=== PATIENT | female | born 1970 | race Two or more races ===

== ENCOUNTER → 2021-05-04 | Outpatient (CLI) | payer BC ==
[2021-05-04 12:52] LABS: Beta HCG, Quantitative < 1 mlU/mL (1-3)
[2021-05-04 13:13] LABS: Lactate Dehydrogenase 181 U/L (84-246)
== END | disposition home or self-care (01) ==
LOC: LAB 08:50
PROVIDERS: ATTEND Obstetrics & Gynecology Gynecologic Oncology
DX: N94.89 Other specified conditions associated with female genital organs and menstrual cycle (principal); R10.2 Pelvic and perineal pain; N92.0 Excessive and frequent menstruation with regular cycle
CPT/HCPCS: 36415; 82105; 82378; 83520; 83615; 84702; 86304; 86336

== ENCOUNTER 2022-06-20 11:12 | Emergency (ER) | payer BC, OTHER ==
[~2022-06-20] VITALS: Ht 157.5 cm; Wt 76.0 kg
[~2022-06-20 11:12] MED LIST: FLUO60TA7 PO; LISI40TA11 PO; SITA100T7 PO
[2022-06-20] MEDS ORDERED: cloNIDine HCL 0.1 MG TAB PO ONE (11:30)
[2022-06-20 11:50] VITALS: BP 207/106
[2022-06-20] MEDS ORDERED: IBUP600T28 PO (13:00)
[2022-06-20] MEDS ORDERED: ACETAMINOPHEN 500 MG TAB PO ONE (13:00)
== END 2022-06-20 13:45 | disposition home or self-care (01) ==
LOC: ER 11:12
DX: S83.92XA Sprain of unspecified site of left knee, initial encounter (principal); S70.02XA Contusion of left hip, initial encounter; E11.9 Type 2 diabetes mellitus without complications; I10 Essential (primary) hypertension; Z90.710 Acquired absence of both cervix and uterus; W01.0XXA Fall on same level from slipping, tripping and stumbling without subsequent striking against object, initial encounter; Y93.89 Activity, other specified; Y92.89 Other specified places as the place of occurrence of the external cause; Y99.8 Other external cause status
CPT/HCPCS: 73502; 73562